=== PATIENT | female | born 1955 | race Caucasian/White ===

== ENCOUNTER → 2017-04-21 | Outpatient (CLI) | payer BC ==
[~2017-04-21] MED LIST: ASPEC81 PO; LRT5 PO
--- NOTE | 2017-04-21 15:38 | MAMMOGRAPHY REPORT ---
BILATERAL DIGITAL SCREENING MAMMOGRAM TOMOSYNTHESIS WITH CAD: 04/21/2017 TECHNIQUE: Breast tomosynthesis in addition to standard 2D mammography was performed. Current study was also evaluated with a Computer Aided Detection (CAD) system. COMPARISON: Comparison is made to exams dated: 04/20/2016 mammogram, 04/17/2015 mammogram, 04/16/2014 m ammogram, 11/12/2013 mammogram, 03/01/2013 mammogram, and 03/01/2013 ultrasound - [facility] enter. BREAST COMPOSITION: There are scattered areas of fibroglandular density in both breasts. FINDINGS: No suspicious masses, calcifications, or areas of architectural distortion are noted in ei ther breast. There has been no significant interval change compared to prior exams. Benign-appearing right breast calcifications are not significantly changed. Circumscribed benign-appearing mass in t he left lower inner quadrant is stable compared to multiple prior exams. IMPRESSION: ACR BI-RADS CATEGORY 2: BENIGN There is no mammographic evidence of malignancy. A 1 year screening mammogram is recommended. The pa tient will receive written notification of the results. Approximately 10% of breast cancers are not detected with mammography. A negative mammographic report should not delay biopsy if a clinically suggestive mass is present. Siri Neil M.D. ah/:04/21/2017 15:00:35 Catalytic Converter Operator: Idalia RICHARDS(Alden)(M), [facility] letter sent: Normal 1/2 BI-RADS Code: ACR BI-RADS Category 2: Benign
== END | disposition home or self-care (01) ==
LOC: C.MAMM 11:39
PROVIDERS: ATTEND Obstetrics & Gynecology
DX: Z12.31 Encounter for screening mammogram for malignant neoplasm of breast (principal)

== ENCOUNTER → 2017-08-03 | Outpatient (CLI) | payer BC | END | disposition home or self-care (01) | LOC: C.PAPS 09:00 | PROVIDERS: ATTEND Obstetrics & Gynecology | DX: Z01.419 Encounter for gynecological examination (general) (routine) without abnormal findings (principal) ==

== ENCOUNTER 2019-05-22 08:15 | Inpatient (IN) ==
--- NOTE | 2019-05-02 10:01 | PAT Medication Instructions ---
Medication Instructions Date of Service May 02, 2019 Home Medications venlafaxine 75 mg capsule,extended release 24 hr 75 mg PO HS Juice Plus 1 cap PO UD lorazepam 0.5 mg PO TID PRN STOP taking 2 weeks before surgery (or as soon as possible if surgery is within 2 weeks) Juice Plus 1 cap PO UD Take morning of surgery With a small sip of water, OTHERWISE NOTHING TO EAT OR DRINK AFTER MIDNIGHT: lorazepam 0.5 mg PO TID PRN (if needed) Take evening before surgery venlafaxine 75 mg capsule,extended release 24 hr 75 mg PO HS lorazepam 0.5 mg PO TID PRN (if needed) Other Notes If you have any questions please call us at [phone] or [phone] or [phone] or [phone]
--- NOTE | 2019-05-03 13:22 | Anesthesiology Consultation ---
Date of Service May 03, 2019 Assessment & Plan (1) Encounter for pre-operative examination: Chart Review Chart Review: Acceptable Risk for Surgery and Patient seen in Pre Admission Testing Teaching & Discussion Instructed NPO after midnight before surgery, except medications with 15 cc of water. Medication instructions provided according to the PAT guidelines. History Surgery Operation Date: 05/22/19 12:50 Proposed Procedures p Left Total Knee Arthroplasty - Rohan Alston MD Height/Weight Height: 5 ft 3 in Weight: 98.6 kg Allergies Allergy/AdvReac Type Severity Reaction Status Date / Time No Known Allergies Allergy Unknown NONE KNOWN Verified 05/01/19 11:03 Medications Home Medications Medication Instructions Recorded Confirmed Last Taken venlafaxine 75 mg capsule,extended 75 mg PO HS 12/27/18 05/03/19 01/24/19 release 24 hr Juice Plus 1 cap PO UD 05/01/19 05/03/19 Unknown lorazepam 0.5 mg PO TID PRN 05/01/19 05/03/19 Unknown aspirin 81 mg tablet,delayed 81 mg PO DAILY 05/03/19 05/03/19 Unknown release Past Medical History Medical History Anxiety Degenerative arthritis of knee, bilateral Osteoarthritis Exercise / Class Metabolic Activity III < 4 Walking/Shop/Light housework (Denies CP or SOB with 1 FOS but limited by knee pain) Past Family History Family History Mother Myocardial infarction Father Myocardial infarction Hypertension Aunt Breast cancer Sister Stroke Son Multiple sclerosis Past Surgical History Surgical History H/O breast biopsy H/O laparoscopy H/O shoulder surgery left (+hardware) H/O tooth extraction History of colonoscopy Past Anesthesia History No Hx of Anesthesia Complications and No Family Hx of Anesthesia Complications History of PONV No Hx of PONV and Hx of Motion Sickness Social History Smoking Status: Never smoker Do You Dip or Chew Tobacco: No Hx Alcohol Use: Yes Alcohol type: beer alcohol intake frequency: holidays/special occasions only Hx Substance Use: No substance use type: does not use Review of Systems Pt denies any recent chest pain, shortness of breath, palpitations, cough, fever or URI. Physical Exam Vital Signs BP: 133/80 P: 69bpm SPO2: 96% RA T: 98.2 F R: 14 Constitutional + obese ENMT Mouth: + dental restorations (few crowns); no chipped teeth and no loose teeth Thyromental Distance: > or= 3.5 Finger Breadths (.5) Mallampati Class: I Neck normal visual inspection and + limited neck extension Respiratory normal respiratory effort Auscultation: lungs clear to auscultation bilaterally Cardiovascular Rate/Rhythm: regular rate and regular rhythm Heart Sounds: no murmur Extremities: no edema Testing Laboratory Results 05/03/19 14:10 05/03/19 14:10 PT 9.7 Seconds (9.0-12.0) 05/03/19 14:10 INR 0.9 (0.9-1.1) 05/03/19 14:10 APTT 25.8 Seconds (21.0-31.0) 05/03/19 14:10 Blood Type O Positive 05/03/19 14:10 Antibody Screen NEGATIVE 05/03/19 14:10 Electrocardiogram Date: 02/01/19 Findings: + NSR @ (74bpm) Chest X-Ray Date: 02/01/19 Findings: + NAD
[2019-05-03 15:07] LABS: Basophils # (auto) 0.03 K/uL (0-0.2); Basophils % (auto) 0.5 %; Eosinophils # (auto) 0.15 K/uL (0-0.5); Eosinophils % (auto) 2.3 %; Hematocrit (blood only) 44.8 % (37-47); Hemoglobin 15.2 g/dL (12.0-16.0); Immature Granulocytes # (auto) 0.01 K/uL (0.00-0.02); Immature Granulocytes % (auto) 0.2 %; Lymphocytes # (auto) 1.77 K/uL (1.2-3.4); Lymphocytes % (auto) 26.8 %; Mean Corpuscular Hemoglobin 29.7 pg (25-34); Mean Corpuscular Hgb Conc 33.9 g/dL (32-36); Mean Corpuscular Volume 87.7 fL (80-100); Mean Platelet Volume 10.7 fL (7.4-10.4); Monocytes # (auto) 0.49 K/uL (0.11-0.59); Monocytes % (auto) 7.4 %; Neutrophils # (auto) 4.16 K/uL (1.4-6.5); Neutrophils % (auto) 62.8 %; Platelet Count 269 K/uL (130-400); RDW Coefficient of Variation 14.4 % (11.5-14.5); RDW Standard Deviation 45.7 fL (36.4-46.3); Red Blood Count 5.11 M/uL (4.2-5.4); White Blood Count 6.61 K/uL (4.8-10.8)
[2019-05-03 15:27] LABS: INR 0.9 (0.9-1.1); Partial Thromboplastin Time 25.8 Seconds (21.0-31.0); Prothrombin Time 9.7 Seconds (9.0-12.0)
[2019-05-03 15:52] LABS: BUN Creatinine Ratio 22.1 (10-20); Calcium 9.5 mg/dl (8.5-10.1); Creatinine Clr Calc Pharmacy 88.3 ml/min; Est GFR (African American) 102.6; Est GFR (Non-African American) 88.5; Potassium 3.7 mmol/L (3.5-5.1)
[~2019-05-22 08:15] MED LIST changes: +ACETAMINOPHEN 500 MG TAB PO SCH; -ASPEC81 PO; +BUPIVACAINE 0.5 % 5 MG/1 ML PF 10ML VIAL ONE; +BUPIVACAINE LIPOSOME/PF 266 MG, BUPIVACAINE/EPINEPHRINE 50 ML, SODIUM CHLORIDE 0.9% 30 ... INFIL SCH; +CEFAZOLIN 2000MG 2,000 MG/15 ML SYR IV SCH; +FAMOTIDINE 20 MG TAB PO SCH; +GABAPENTIN 600 MG DOSE PO SCH; +LR 500ML BOLUS, THEN 15ML/HR IV SCH; +LR 60ML/HR IV SCH; -LRT5 PO; +METOCLOPRAMIDE HCL 10 MG TABLET PO SCH; +ROPIVACAINE 0.5% 5 MG/ML 30 ML VIAL ONE; +SCOPOLAMINE 1.5 MG TDSY TD SCH; +SODIUM CHLORIDE 0.9% 1,000 ML IV SCH; +TRANEXAMIC ACID 1,000 MG **IV Intra-op IV SCH
--- NOTE | 2019-05-22 08:50 | History & Physical Bridge Note ---
Date of Service May 22, 2019 History & Physical Bridge Note I have examined the patient, reviewed the History & Physical and in the interval since the performance of the History & Physical I have noted the following changes of clinical significance: no changes noted
[2019-05-22] MEDS ORDERED: PROPOFOL IV EMULSION 10 MG/ML 20 ML VIAL IV ONE (09:53)
[2019-05-22] MEDS ORDERED: MIDAZOLAM HCL 1 MG/ML 2ML VIAL ONE (09:54)
[2019-05-22] MEDS ORDERED: ONDANSETRON INJ 2 MG/ML 2 ML VIAL IV PRN (10:09)
[2019-05-22] MEDS ORDERED: ePHEDrine sulfate 50 MG/ML AMP IV PRN (10:09)
[2019-05-22] MEDS ORDERED: ATROPINE SULFATE 0.1 MG/ML 10ML SYR IV PRN (10:09)
[2019-05-22] MEDS ORDERED: PHENYLEPHRINE 100MCG/ML 5ML SYR IV PRN (10:09)
[2019-05-22] MEDS ORDERED: HYDROmorphone INJ 1 MG/ML SYRINGE IV PRN (10:09)
[2019-05-22] MEDS ORDERED: KETOROLAC 30 MG/ML VIAL IV PRN (10:09)
[2019-05-22] MEDS ORDERED: PROMETHAZINE HCL 12.5 MG in SODIUM CHLORIDE 0.9% 50 ML IV PRN (10:09)
[2019-05-22] MEDS ORDERED: SODIUM CHLORIDE 0.9% PF 50 ML VIAL ONE (10:23)
[2019-05-22] MEDS ORDERED: BUPIVACAINE/EPINEPHRINE 0.25% 1:200,000 30 ML VIAL ONE (10:23)
[2019-05-22] MEDS ORDERED: BACITRACIN INJ 50,000 UNIT VIAL ONE (10:24)
[2019-05-22] MEDS ORDERED: BUPIVACAINE LIPOSOME 1.3% 266 MG/20 ML VIAL ONE (10:24)
[2019-05-22] MEDS ORDERED: PHENYLEPHRINE HCL 10 MG/ML VIAL ONE (11:04)
[2019-05-22] MEDS ORDERED: TRANEXAMIC ACID / 0.7% NACL 1000MG/100ML BAG IV ONE (11:16)
[2019-05-22] MEDS ORDERED: ePHEDrine sulfate 50 MG/ML AMP ONE (12:02)
--- NOTE | 2019-05-22 12:22 | Post Operative Brief Note ---
PG Immediate Post Op with CF Date of Surgery May 22, 2019 Pre & Post Diagnosis Operation Date: 05/22/19 10:40 Pre-Op Diagnosis: Left Knee Advanced Degenerative Joint Disease Post-Op Diagnosis: Left Knee Advanced Degenerative Joint Disease I identified the patient and participated in the time-out.: Yes Procedure Operation Date: 05/22/19 10:40 Actual Procedures p Left Total Knee Arthroplasty(Left) - Rohan Alston MD Surgeon Rohan Alston MD Dairy Farmer Christiano, PAC Estimated Blood Loss 50 Findings Consistent with Post-Op Diagnosis Fluids 1500 cc Specimens Specimen Description: Permanent: A. Left knee bone and tissue Drains Sher Catheter (A 16 [place] sher catheter was inserted by Anaya Rosas RN, without difficulty, clear yellow urine obtained, output to be monitored by Anesthesia.) Anesthesia Type Spinal MAC Complications none Disposition Accompanied Patient To Recovery: No Disposition: Recovery Room
--- NOTE | 2019-05-22 12:42 | XRay Report ---
XR knee LT 1 or 2V routine CLINICAL HISTORY: Postoperative evaluation. COMPARISON: Knee radiographs February 01, 2019. FINDINGS: Alignment of the total left knee arthroplasty is anatomic. There is no fracture or unexpec topher radiopaque foreign body. There are skin paty. IMPRESSION: Expected findings following total left knee arthroplasty. Electronically signed by: Tulio Belcher M.D. 05/22/2019 12:41 PM
[2019-05-22] MEDS ORDERED: HYDROmorphone INJ 0.5 MG/0.5 ML SYR IV PRN (13:42)
[2019-05-22] MEDS ORDERED: ALUMINUM/MAGNESIUM SUSP 30 ML UDC PO PRN (13:42)
[2019-05-22] MEDS ORDERED: [UNRECOGNIZED DRUG - OTHER] PO SCH (13:42)
[2019-05-22] MEDS ORDERED: MAGNESIUM HYDROXIDE SUSP 30 ML UDC PO PRN (13:42)
[2019-05-22] MEDS ORDERED: bisacodyL 10 MG SUPP PR PRN (13:42)
[2019-05-22] MEDS ORDERED: METOCLOPRAMIDE HCL INJ 5 MG/ML 2 ML VIAL IV PRN (13:42)
[2019-05-22] MEDS ORDERED: LORazepam 0.5 MG TAB PO PRN (13:42)
[2019-05-22] MEDS ORDERED: NALOXONE HCL 0.4 MG/1 ML VIAL/CARP IV PRN (13:42)
--- NOTE | 2019-05-22 13:50 | Anesthesiology Progress Note ---
Date of Service May 22, 2019 Anesthesia Post Procedure Vital Signs Vital Signs: Temp Pulse Pulse Resp BP Pulse Ox 05/22/19 13:05 37.1 C 78 18 110/57 L 96 05/22/19 12:55 71 14 108/57 L 96 05/22/19 12:45 72 13 116/61 93 05/22/19 12:35 74 18 110/52 L 99 05/22/19 12:27 37.1 C 78 16 112/58 L 98 05/22/19 10:37 84/54 L 05/22/19 10:35 84/45 L 05/22/19 08:48 37.1 C 86 20 140/85 94 Pain Intensity Left Knee: Pain Intensity: 5 Transfer of Care Handoff Completed per policy Notes Mental Status: alert / awake / arousable Patient Amnestic to Procedure: Yes Nausea / Vomiting: adequately controlled Pain: adequately controlled Airway Patency, RR, SpO2: stable & adequate BP & HR: stable & adequate Hydration State: stable & adequate Anesthetic Complications: no major complications apparent
[2019-05-22] MEDS: ACETAMINOPHEN 500 MG TAB PO SCH ×2 (14:12→21:31)
[2019-05-22] MEDS: SODIUM CHLORIDE 0.9% 1000ML 1,000 ML IV SCH ×2 (14:12→23:41)
[2019-05-22] MEDS: KETOROLAC 30 MG/ML VIAL IV SCH ×2 (14:13→19:37)
[2019-05-22] MEDS: CHECK SCOPOLAMINE PATCH PLACEMENT SCH ×2 (15:17→23:42)
--- NOTE | 2019-05-22 17:05 | Operative Report ---
Post Operative Report Pre & Post Diagnosis Operation Date: 05/22/19 10:40 Pre-Op Diagnosis: Left Knee Advanced Degenerative Joint Disease Post-Op Diagnosis: Left Knee Advanced Degenerative Joint Disease I identified the patient and participated in the time-out.: Yes Procedure Operation Date: 05/22/19 10:40 Actual Procedures p Left Total Knee Arthroplasty(Left) - Rohan Alston MD Surgeon Rohan Alston MD Clinical Asst Christiano, PAC Estimated Blood Loss 50 Findings Consistent with Post-Op Diagnosis Operative findings revealed advanced left knee DJD with extensive grade 4 changes of the medial and patellofemoral compartments with osteophytes of the medial femoral condyle, medial tibial plateau in the posterior aspect of the femur as well as along the patella. She had a moderate-sized joint effusion and a fixed varus deformity to her knee. About a 10 degree flexion contracture. Fluids 1500 cc Specimens Left knee sent for pathology. Drains None. Anesthesia Type Spinal MAC Complications none Disposition Accompanied Patient To Recovery: No Disposition: Recovery Room Indications Patient is a 63-year-old female with a long history of bilateral knee pain discomfort is gradually is gotten worse over the past several years. She been through extensive conservative treatment the past which became less successful over time. X-rays show advanced bilateral knee DJD per the left side was by the more than the right and she has elected to proceed with total knee arthroplasty. Description of Procedure Operative implants consisted of: 1. Biomet Vanguard size 67.5 left posterior bifemoral component. 2. Biomet Vanguard size 67 tibial tray. 3. 10 mm post device polyethylene insert. 4. 31 x 8 all poly-patella. Patient was taken to the operating room identified and placed in the operating table supine position with all contact areas were properly padded. IV antibiotics were provided by anesthesia team. A spinal anesthetic and abductor canal block had provided holding area. Fuentes catheter was placed in sterile fa shion the left eye turn was then placed in the left lower extremities and prepped and draped in usual sterile fashion. The left leg was elevated exsanguinated use of an Esmarch interspace at 300 mmHg . An anterior posterior left knee was then performed to a longitudinal incision centered over the patella. Sharp dissection was cut through subcutaneous cyst download the extensor mechanism. Some subperiosteal dissection was carried out medially. The fat pad was resected from beneath patella tendon. Lateral patellofemoral ligament was released. Patella was everted and the knee was flexed. The osteophytes were taken off the distal femur. The ACL PCL were then released from the distal femur the tibia subluxated anteriorly. The external tibial alignment jig was then placed in the interface the tibia and adjusted 14 mm medially. Proximal tibial cut was made to remove about 2 to 3 mm of bone from the most efficient aspect the medial tibial plateau. Tibia was then sized to a size 67. Attention drawn the femur. The distal femur was entered with a sharp drill. Intramedullary canal was suction. A left 5 degree valgus cutting guide was placed. Distal femoral cutting block was pinned in place. Distal femoral cut was made to take an additional 3 mm of bone off the distal femur. Femur was then sized to a size 67.5P we did downsize this due to the narrow medial and lateral dimensions of her femur. AP cutting block was pinned parallel to the epicondylar axis which was 6 degrees of external rotation. The anterior cut, anterior chamfer, posterior cut, posterior chamfer cuts made. Box cutting guide was placed and adjusted slightly laterally. The box cut was made to the knee was flexed. The remnants of the medial lateral menisci were excised. The osteophytes were taken off the posterior aspect of the femur. A trial femoral component was placed but the tibial tray was pinned in maximum external rotation and the drill and stem punch were used to create defect in the proximal tib-fib tibial tray. Knee was then trialed the 10 mm insert fit most appropriately. Attention drawn the patella. Patella was cleaned of soft tissues. Patella thickness measured 18 mm in thickness was cut down to 12. Was sized to a size 31 patella. The locals were drilled for 31 patella. The lateral osteophyte was removed. Patella button was placed. Knee was taken through range of motion with patella tracked nicely with no thumbs test. Attention turned toward placing the permanent components. All trial components were removed. Bone plug was placed in the disc femur limit blood loss put a double batch [place] G cement was mixed. Biomet Cuponzoteguard size 67.5 left posterior bifemoral component, size 67 tibial tray, 10 mm posterior bite polyethylene insert, and 31 x 8 all poly-patella then cement in place. Knees brought out in full extension until cement hardened. Final cement check was then performed. Pericapsular tissues were injected with total of 100 cc of combination of 20 cc of Exparel, 30 cc normal saline, 50 cc of quarter percent Marcaine with epinephrine. Patient did receive 1 g of tranexamic acid. The tourniquet was then let down for final tourniquet time 55 minutes. Hemostasis should use electrocautery. The extensor mechanism closed with combination 1 PDS suture #1 Vicryl suture in a [id number] fashion for extensor mechanism checked found to be intact the subtenons tissue then closed with 2 Dexon suture in a buried interrupted fashion skin was closed skin paty. Leg was then cleaned dried and sterile dressing composed of Xeroform, 4 x 4's, sterile cast padding, Jean Paul bandage were applied. Patient then transferred to the recovery room in stable condition. Patient tolerated procedure well and no complications. I attest to the content of the Intraoperative Record and any orders documented therein. Any exceptions are noted below.
[2019-05-22] MEDS: CEFAZOLIN 2000MG 2,000 MG/15 ML SYR IV SCH (17:57)
[2019-05-22] MEDS: FERROUS GLUCONATE 324 MG TAB PO SCH (17:57)
[2019-05-22] MEDS: ASCORBIC ACID 500 MG TAB PO SCH (17:57)
[2019-05-22] MEDS ORDERED: TRANEXAMIC ACID / 0.7% NACL 1,000 MG/100 ML BAG IV SCH (18:30)
[2019-05-22] MEDS: TAPENTADOL HCL ER 50 MG TABCR PO SCH (20:32)
[2019-05-22] MEDS: SENNA 8.6 MG TAB PO SCH (21:31)
[2019-05-22] MEDS: ASPIRIN 81 MG ECTAB PO SCH (21:31)
[2019-05-22] MEDS: VENLAFAXINE HCL XR 75 MG CAPXR PO SCH (21:31)
[2019-05-22] MEDS: DOCUSATE SODIUM 100 MG CAP PO SCH (21:31)
[2019-05-23] MEDS: CEFAZOLIN 2000MG 2,000 MG/15 ML SYR IV SCH (01:25)
[2019-05-23] MEDS: OXYCODONE HCL IR 5 MG TAB (IMMEDIATE RELEASE) PO PRN ×3 (01:29→20:26)
[2019-05-23] MEDS: KETOROLAC 30 MG/ML VIAL IV SCH ×4 (01:29→20:27)
[2019-05-23] MEDS: ONDANSETRON INJ 2 MG/ML 2 ML VIAL IV PRN ×3 (01:33→12:50)
[2019-05-23] MEDS: ACETAMINOPHEN 500 MG TAB PO SCH ×3 (05:41→21:17)
[2019-05-23 06:24] LABS: Hematocrit (blood only) 38.8 % (37-47); Hemoglobin 12.6 g/dL (12.0-16.0); Mean Corpuscular Hemoglobin 29.1 pg (25-34); Mean Corpuscular Hgb Conc 32.5 g/dL (32-36); Mean Corpuscular Volume 89.6 fL (80-100); Mean Platelet Volume 10.3 fL (7.4-10.4); Platelet Count 192 K/uL (130-400); RDW Coefficient of Variation 14.7 % (11.5-14.5); RDW Standard Deviation 48.2 fL (36.4-46.3); Red Blood Count 4.33 M/uL (4.2-5.4); White Blood Count 6.26 K/uL (4.8-10.8)
[2019-05-23 06:53] LABS: BUN Creatinine Ratio 12.9 (10-20); Calcium 8.3 mg/dl (8.5-10.1); Creatinine Clr Calc Pharmacy 85.7 ml/min; Est GFR (African American) 99.2; Est GFR (Non-African American) 85.6
--- NOTE | 2019-05-23 07:19 | Orthopedic Progress Note ---
Date of Service May 23, 2019 Assessment & Plan (1) S/P total knee replacement: Continue PT/OT. She is weightbearing as tolerated. Continue discharge planning. Teds S, SCDs, aspirin for DVT prophylaxis. Her pain is well controlled at this point. She is seen and examined by Dr. Alston today as well. Subjective 63-year-old female postop day 1 from left total knee replacement. She is doing well. She is ambulating to the restroom at this point. Denies any pain. No new complaints. Physical Exam Physical Exam: She is alert and oriented. Ambulating at this point. She is able to dorsiflex plantarflex appropriately. She is neurovascular intact. Vital signs are stable. Results & Data Vital Signs (Past 12 Hours) Vital Signs Temp Pulse Resp BP Pulse Ox 05/23/19 04:15 37.2 C 73 16 134/68 94 05/22/19 23:05 36.8 C 70 16 123/72 97 05/22/19 19:52 36.5 C 62 18 110/69 94 PG Care Time/CCT Total # of Minutes Spent Total Time Spent with Patient: Total time spent is greater than 50% in coordination of care (as documented) at patient's floor/unit and/or counseling patient:
[2019-05-23] MEDS: MULTIVITAMIN TAB PO SCH (08:22)
[2019-05-23] MEDS: ASCORBIC ACID 500 MG TAB PO SCH ×2 (08:22→18:22)
[2019-05-23] MEDS: FERROUS GLUCONATE 324 MG TAB PO SCH ×2 (08:22→18:22)
[2019-05-23] MEDS: DOCUSATE SODIUM 100 MG CAP PO SCH ×2 (08:23→20:30)
[2019-05-23] MEDS: TAPENTADOL HCL ER 50 MG TABCR PO SCH ×2 (08:23→21:28)
[2019-05-23] MEDS: ASPIRIN 81 MG ECTAB PO SCH ×2 (08:23→20:29)
[2019-05-23] MEDS: VENLAFAXINE HCL XR 75 MG CAPXR PO SCH (20:30)
[2019-05-23] MEDS: SENNA 8.6 MG TAB PO SCH (20:31)
[2019-05-24] MEDS: OXYCODONE HCL IR 5 MG TAB (IMMEDIATE RELEASE) PO PRN (00:53)
[2019-05-24] MEDS: KETOROLAC 30 MG/ML VIAL IV SCH ×2 (00:57→07:36)
[2019-05-24] MEDS: ACETAMINOPHEN 500 MG TAB PO SCH (05:43)
[2019-05-24] MEDS: FERROUS GLUCONATE 324 MG TAB PO SCH (07:36)
[2019-05-24] MEDS: ASPIRIN 81 MG ECTAB PO SCH (07:36)
[2019-05-24] MEDS: TAPENTADOL HCL ER 50 MG TABCR PO SCH (07:36)
[2019-05-24] MEDS: ASCORBIC ACID 500 MG TAB PO SCH (07:36)
[2019-05-24] MEDS: DOCUSATE SODIUM 100 MG CAP PO SCH (07:36)
[2019-05-24] MEDS: MULTIVITAMIN TAB PO SCH (07:36)
--- NOTE | 2019-05-24 08:19 | Progress Note ---
DATE: 05/24/2019 SUBJECTIVE: A 63-year-old female postop day 2 from a left knee replacement. She is doing pretty well. Pain is very well controlled. Therapy has gone well. No chest pain or shortness of breath. Not feeling dizzy or lightheaded. OBJECTIVE: VITAL SIGNS: Temperature 37.1. Vital signs stable. GENERAL: Shows a pleasant, middle-aged female. She is sitting up in her bed, eating breakfast and looks comfortable. EXTREMITIES: Examination of the left leg reveals the dressing to be clean, dry and intact. She can dorsiflex and plantarflex her foot appropriately. Calf is soft and supple. She is neurologically intact. ASSESSMENT: A 63-year-old female postop day 2 from left knee replacement, doing well. Her pain is controlled. She is neurologically intact. PLAN: 1. DVT prophylaxis including thigh-high TEDs, SCDs, and aspirin twice a day. 2. PT/OT. Weight bear as tolerated. Left total knee protocol. 3. Pain control, doing well with current pain regimen. 4. Disposition: Plan to discharge to home with some home health later today.
--- NOTE | 2019-05-27 22:57 | Discharge Summary ---
ADMITTING PHYSICIAN AND SURGEON: Dr. Rohan Alston. ADMITTING DIAGNOSIS: Left knee degenerative joint disease. SURGERY PERFORMED: Left total knee arthroplasty. SECONDARY DIAGNOSES: Gastroesophageal reflux disease, arthritis, obesity. CONSULTS: None obtained. HISTORY AND PHYSICAL EXAMINATION: Well documented in the patient's chart. HOSPITAL COURSE: The patient was admitted on 05/22/2019, underwent a total knee arthroplasty, tolerated the procedure well. There were no complications. She was transferred to the PACU postoperatively and later to the orthopedic floor for further care. She was given Ancef for antibiotic prophylaxis, BRANDY stockings, SCDs and aspirin for DVT prophylaxis. Hemoglobin, hematocrit and vital signs were monitored during her hospital stay and remained stable. She did not require any blood transfusions. There were no complications. By postoperative day 2, she was tolerating a regular diet, pain was controlled with oral pain medicine. She was participating in physical therapy. By postop day 2, she was discharged home, set up with home health services. She was given printed discharge instructions as well as new prescriptions for extra strength Tylenol, aspirin and oxycodone. Continue her home medications with the exception of her home dosing of Tylenol and aspirin which was changed. Continue physical therapy, weightbearing as tolerated, BRANDY stockings. Follow up approximately 2 weeks postop or sooner if there are any problems or concerns.
== END 2019-05-24 11:00 | disposition home health service (06) | DRG 470 ==
LOC: ASU 08:15 → 3E 12:27

== ENCOUNTER 2019-11-20 06:45 | Inpatient (IN) ==
--- NOTE | 2019-10-30 08:42 | PAT Medication Instructions ---
Medication Instructions Date of Service October 30, 2019 Home Medications venlafaxine 75 mg capsule,extended release 24 hr 75 mg PO HS Juice Plus 1 cap PO UD lorazepam 0.5 mg PO TID PRN amoxicillin 2,000 mg PO UD Continue as directed amoxicillin 2,000 mg PO UD STOP taking 2 weeks before surgery Juice Plus 1 cap PO UD Take morning of surgery With a small sip of water, OTHERWISE NOTHING TO EAT OR DRINK AFTER MIDNIGHT: lorazepam 0.5 mg PO TID PRN (if needed) Take evening before surgery venlafaxine 75 mg capsule,extended release 24 hr 75 mg PO HS lorazepam 0.5 mg PO TID PRN (if needed) Other Notes If you have any questions please call us at [phone] or [phone] or [phone] or [phone]
--- NOTE | 2019-10-30 12:35 | Anesthesiology Consultation ---
Date of Service October 30, 2019 Assessment & Plan (1) Encounter for pre-operative examination: Chart Review Chart Review: Acceptable Risk for Surgery and Patient seen in Pre Admission Testing Per PAT visit 10/30/19, patient denies any recent travel out of [facility]. No known PUI or Covid positive contacts. No current Covid related symtpoms. No history of Covid testing. Did discourage any travel or new contact to others prior to surgery. Left TKA 05/22/19= Done under SAB- at L 3-4. No issues noted per anesthesia record Teaching & Discussion Pre-Anesthesia Teaching/Discussion Notes: Instructed NPO after midnight before surgery,except medications with 15 cc of water. Medication instructions provided according to the PAT guidelines. History Surgery Operation Date: 11/20/19 07:15 Proposed Procedures p Right Total Knee Arthroplasty - Rohan Alston MD Height/Weight Height: 5 ft 3 in Weight: 100.3 kg Allergies Allergy/AdvReac Type Severity Reaction Status Date / Time No Known Allergies Allergy Unknown NONE KNOWN Verified 10/29/19 15:22 Medications Home Medications Medication Instructions Recorded Confirmed Last Taken venlafaxine 75 mg capsule,extended 75 mg PO HS 12/27/18 10/29/19 05/21/19 22:00 release 24 hr Juice Plus 1 cap PO UD 05/01/19 10/29/19 05/19/19 lorazepam 0.5 mg PO TID PRN 05/01/19 10/29/19 05/22/19 07:00 amoxicillin 2,000 mg PO UD 10/29/19 10/29/19 Unknown Past Medical History Medical History Anxiety Right knee DJD Exercise / Class Metabolic Activity II 4-5 Yardwork/Stairs/Walk up hill (one flight of stairs- no chest pain or SOB ) Past Family History Family History Mother Myocardial infarction Father Myocardial infarction Hypertension Aunt Breast cancer Sister Stroke Son Multiple sclerosis Denies family history of Ovarian cancer Colorectal cancer Past Surgical History Surgical History H/O breast biopsy H/O laparoscopy H/O shoulder surgery left (+hardware) H/O tooth extraction History of colonoscopy History of total knee replacement LEFT Past Anesthesia History No Hx of Anesthesia Complications and No Family Hx of Anesthesia Complications History of PONV History of PONV and Hx of Motion Sickness Social History Smoking Status: Never smoker Do You Dip or Chew Tobacco: No Hx Alcohol Use: Yes Alcohol type: wine alcohol intake frequency: a few times a month Hx Substance Use: No substance use type: does not use Review of Systems Occ reflux- diet related Occ snoring- no witnessed apnea Patient denies chest pain, shortness of breath, dyspnea on exertion, cough, wheezing, palpitations. No hx of seizures, stroke, [place]. No hx of blood clots or blood transfusions Physical Exam Vital Signs VITALS BP 126/73 P 77 TEMP 97.9 SP02 98% RESP 16 Constitutional + obese; no acute distress ENMT Mouth: no TMJ clicking Thyromental Distance: > or= 3.5 Finger Breadths (3.5) Mallampati Class: I Neck neck extension not limited Respiratory normal respiratory effort; no respiratory distress Auscultation: lungs clear to auscultation bilaterally; no wheezes Cardiovascular Rate/Rhythm: regular rate and regular rhythm Heart Sounds: no murmur Vessels: no carotid bruit Musculoskeletal Spine: no pain with cervical ROM Neurologic moves all extremities Psychiatric Orientation: alert Testing Laboratory Results 10/30/19 12:47 10/30/19 12:47 PT 10.2 Seconds (9.0-12.0) 10/30/19 12:47 INR 1.0 (0.9-1.1) 10/30/19 12:47 APTT 27.9 Seconds (21.0-31.0) 10/30/19 12:47 Blood Type O Positive 10/30/19 12:47 Antibody Screen NEGATIVE 10/30/19 12:47 Electrocardiogram Date: 02/01/19 Findings: + NSR @ (74bpm) Chest X-Ray Date: 02/01/19 Findings: + NAD
[2019-10-30 13:42] LABS: Basophils # (auto) 0.02 K/uL (0-0.2); Basophils % (auto) 0.4 %; Eosinophils # (auto) 0.14 K/uL (0-0.5); Eosinophils % (auto) 2.8 %; Hematocrit (blood only) 42.6 % (37-47); Hemoglobin 13.9 g/dL (12.0-16.0); Immature Granulocytes # (auto) 0.01 K/uL (0.00-0.02); Immature Granulocytes % (auto) 0.2 %; Lymphocytes # (auto) 1.39 K/uL (1.2-3.4); Lymphocytes % (auto) 27.7 %; Mean Corpuscular Hemoglobin 28.5 pg (25-34); Mean Corpuscular Hgb Conc 32.6 g/dL (32-36); Mean Corpuscular Volume 87.5 fL (80-100); Mean Platelet Volume 10.2 fL (7.4-10.4); Monocytes # (auto) 0.43 K/uL (0.11-0.59); Monocytes % (auto) 8.6 %; Neutrophils # (auto) 3.03 K/uL (1.4-6.5); Neutrophils % (auto) 60.3 %; Platelet Count 275 K/uL (130-400); RDW Coefficient of Variation 14.6 % (11.5-14.5); RDW Standard Deviation 46.5 fL (36.4-46.3); Red Blood Count 4.87 M/uL (4.2-5.4); White Blood Count 5.02 K/uL (4.8-10.8)
[2019-10-30 13:48] LABS: BUN Creatinine Ratio 29.2 (10-20); C Reactive Protein 1.96 mg/dl (0-0.29); Calcium 9.5 mg/dl (8.5-10.1); Creatinine Clr Calc Pharmacy 103.9 ml/min; Est GFR (African American) 110.3; Est GFR (Non-African American) 95.1
[2019-10-30 13:54] LABS: Partial Thromboplastin Time 27.9 Seconds (21.0-31.0); Prothrombin Time 10.2 Seconds (9.0-12.0)
[~2019-11-20 06:45] MED LIST changes: +GABAPENTIN 300 MG CAP PO SCH; -GABAPENTIN 600 MG DOSE PO SCH; -ROPIVACAINE 0.5% 5 MG/ML 30 ML VIAL ONE; -SCOPOLAMINE 1.5 MG TDSY TD SCH; -SODIUM CHLORIDE 0.9% 1,000 ML IV SCH
[2019-11-20] MEDS ORDERED: MIDAZOLAM HCL 1 MG/ML 2ML VIAL ONE ×2 (07:23→07:52)
[2019-11-20] MEDS ORDERED: PROPOFOL IV EMULSION 10 MG/ML 20 ML VIAL IV ONE (07:23)
[2019-11-20] MEDS ORDERED: fentaNYL citrate 100 MCG/2 ML VIAL ONE (07:23)
[2019-11-20] MEDS ORDERED: ONDANSETRON INJ 2 MG/ML 2 ML VIAL ONE (07:23)
[2019-11-20] MEDS ORDERED: LIDOCAINE HCL 2% 2 ML VIAL/AMP(20MG/ML) INFIL ONE (07:23)
[2019-11-20] MEDS ORDERED: BUPIVACAINE/EPINEPHRINE 0.25% 1:200,000 30 ML VIAL ONE (07:33)
[2019-11-20] MEDS ORDERED: BUPIVACAINE LIPOSOME 1.3% 266 MG/20 ML VIAL ONE (07:33)
[2019-11-20] MEDS ORDERED: BACITRACIN INJ 50,000 UNIT VIAL ONE (07:33)
[2019-11-20] MEDS ORDERED: SODIUM CHLORIDE 0.9% PF 50 ML VIAL ONE (07:33)
--- NOTE | 2019-11-20 08:44 | History & Physical Bridge Note ---
Date of Service November 20, 2019 History & Physical Bridge Note I have examined the patient, reviewed the History & Physical and in the interval since the performance of the History & Physical I have noted the following changes of clinical significance: no changes noted
[2019-11-20] MEDS ORDERED: ONDANSETRON INJ 2 MG/ML 2 ML VIAL IV PRN ×2 (09:24→11:42)
[2019-11-20] MEDS ORDERED: ePHEDrine sulfate 50 MG/ML AMP IV PRN (09:24)
[2019-11-20] MEDS ORDERED: ATROPINE SULFATE 0.1 MG/ML 10ML SYR IV PRN (09:24)
[2019-11-20] MEDS ORDERED: fentaNYL citrate 100 MCG/2 ML VIAL IV PRN (09:24)
[2019-11-20] MEDS ORDERED: PHENYLEPHRINE 100MCG/ML 5ML SYR ONE (09:51)
[2019-11-20] MEDS ORDERED: PROMETHAZINE HCL INJ 25 MG/ML 1 ML VIAL ONE (09:51)
[2019-11-20] MEDS ORDERED: DEXAMETHASONE SOD INJ 4 MG/ML VIAL ONE (09:51)
[2019-11-20] MEDS ORDERED: ePHEDrine sulfate 50 MG/ML SYR ONE (09:51)
--- NOTE | 2019-11-20 10:29 | Post Operative Brief Note ---
PG Immediate Post Op with CF Date of Surgery November 20, 2019 Pre & Post Diagnosis Operation Date: 11/20/19 08:30 Pre-Op Diagnosis: Right knee degenerative joint disease with knee pain Post-Op Diagnosis: Right knee degenerative joint disease with knee pain Operation Date: 11/20/19 11:00 <No data on this case meets the specified criteria> I identified the patient and participated in the time-out.: Yes Procedure Operation Date: 11/20/19 08:30 Actual Procedures p Right Total Knee Arthroplasty(Right) - Rohan Alston MD Operation Date: 11/20/19 11:00 <No data on this case meets the specified criteria> Surgeon Rohan Alston MD Accountant Supervisor POLO Alvarado Estimated Blood Loss 50 Findings Consistent with Post-Op Diagnosis Fluids 1400 cc Specimens Specimen Description: Permanent Specimen: A: Right knee bone and tissue Drains Sher Catheter (16fr sher catheter placed by Donna Alvarado PA-C, without difficulty, sher demonstrates clear yellow urine. Output measured and recorded by anesthesia.) Anesthesia Type Spinal MAC Complications none Disposition Accompanied Patient To Recovery: No Disposition: Recovery Room
--- NOTE | 2019-11-20 10:41 | Operative Report ---
Post Operative Report Pre & Post Diagnosis Operation Date: 11/20/19 08:30 Pre-Op Diagnosis: Right knee degenerative joint disease with knee pain Post-Op Diagnosis: Right knee degenerative joint disease with knee pain Operation Date: 11/20/19 11:00 <No data on this case meets the specified criteria> I identified the patient and participated in the time-out.: Yes Procedure Operation Date: 11/20/19 08:30 Actual Procedures p Right Total Knee Arthroplasty(Right) - Rohan Alston MD Operation Date: 11/20/19 11:00 <No data on this case meets the specified criteria> Surgeon Rohan Alston MD Business Process Manager [facility] Estimated Blood Loss 50 Findings Consistent with Post-Op Diagnosis Operative findings revealed advanced right knee tricompartment DJD most severe in the medial and patellofemoral compartments with extensive grade 4 changes. She had a varus deformity to her knee. Osteophytes in all 3 compartments. Moderate sized joint effusion. Fluids 1400 cc. Specimens Right knee sent for pathology. Drains None. Anesthesia Type Spinal MAC Complications none Disposition Accompanied Patient To Recovery: No Disposition: Recovery Room Indications Patient is a 64-year-old female is had a long history of bilateral knee pain discomfort. She underwent a left knee replacement about 6 months ago and is done quite well. As she continued limited and bothered by right knee pain discomfort. She failed all conservative care. X-rays ruled revealed advanced right knee DJD. She elected proceed with total knee arthroplasty. Description of Procedure Operative implants consist of: 1. Biomet Vanguard size 67.5 right posterior by femoral component. 2. Biomet size 67 tibial tray. 3. 10 mm posterior box polyethylene insert. 4. 31 x 8 all poly-patella. Patient was taken to the operating room identified and placed on the operating table supine position protectors were properly padded. IV antibiotics arrived by anesthesia team. A Fuentes catheter was placed in sterile fashion. Right thigh tract was then placed in the right lower extremity was then prepped and draped in the usual sterile fashion. The right leg was elevated exsanguinated with use of an Esmarch and turns placed at 300 mmHg. An anterior approach to the right knee was then performed to longitudinal incision centered over the patella. Sharp dissection was cut through subcutaneous this down to the extensor mechanism. A medial parapatellar arthrotomy incision was made. Some subperiosteal dissection was carried out medially. The fat pad was resected from each patella tendon. The lateral patellofemoral ligament was released. Patella was subluxate laterally and the knee was flexed. The osteophytes were taken off the distal femur. The ACL and PCL were then released and distal femur the tibia subluxate anteriorly. The external tibial alignment jig was then placed in the interface the tibia adjusted 14 mm medially. Proximal tibial cut was made to move about 2 mm of bone from most efficient aspect medial tibial plateau. Some osteophytes were taken off medial and posterior medially. The tibia sized to a size 67. Attention drawn the femur. The distal femur was entered with a sharp drop with intramedullary canal was suction. A right 5 degree valgus cutting guide was placed. Distal femoral cutting block was pinned in place. Distal femoral cut was made to take an additional 3 mm of bone off distal femur. Of note, the patient did have a flexion contracture preoperatively. The femur was then sized to a 67.5. We downsized this almost the entire size due to her narrow medial and lateral dimensions of the femur. The AP cutting block was pinned parallel to the epicondylar axis which was 3 degrees of external rotation. The anterior cut, anterior chamfer, posterior cut, posterior chamfer cuts were made. Box cutting guide was placed in the just slight lateral and the box cut was made. The knee was flexed. The remnants of the medial lateral menisci were excised. The osteophytes were taken off the posterior aspect of the femur. A trial femoral component was placed. The tibial tray was pinned in maximum external rotation and the drill and stem punch were used to create defect in the proximal tibia for the tibial tray. Knee was then trialed and the 10 mm insert fit most appropriately. Attention drawn to the patella. The patella was cleaned of all soft tissues. Patella thickness measured 18 mm in thickness was cut down to 12. Sized to a size 31 patella. The locals were drilled for the 31 patella. The lateral osteophyte was removed. Patella button was placed. Knee was taken through range of motion patella tracked nicely with no thumbs test. Attention turned to placing the permanent components. All trial components removed. Bone plug was placed into the distal femur limit blood loss. A double batch Palacos G cement was mixed. A BiomTwilio Vanguard size 67.5 right posterior by femoral component, size 67, tibial tray, and a 10 mm posterior stabilized polyethylene insert and a 31 x 8 all poly-patella were then cemented in place. Knee was brought out into full extension until cement hardened. Final cement check was then performed. The wound was irrigated with copious pulsatile lavage solution. I did inject locally with 100 cc of combination of 20 cc of Exparel, 30 cc of normal saline, 50 cc of quarter percent Marcaine with epinephrine. The tourniquet was then let down for tourniquet time 52 minutes. Hemostasis assured use electrocautery. The extensor mechanism then closed with combination 1 PDS suture #1 Vicryl suture in a [id number] fashion. The extensor mechanism checked found to be intact with subcutaneous tissue then closed with 2 Dexon suture in a buried interrupted fashion skin was closed skin paty. Leg was then cleaned dried a sterile dressing composed of Xeroform, 4 x 4's, sterile cast padding, Jean Paul bandage were applied. Patient then transferred to the recovery room in stable condition. Patient tolerated procedure well no complications. I attest to the content of the Intraoperative Record and any orders documented therein. Any exceptions are noted below.
--- NOTE | 2019-11-20 11:04 | XRay Report ---
RIGHT KNEE 2 VIEWS History: Right total knee arthroplasty. Degenerative arthritis. Postop. FINDINGS: The patient is status post a right total knee arthroplasty. The hardware is intact. No frac ture or dislocation. Skin paty are in place. IMPRESSION: Right total knee arthroplasty. No evidence for hardware complication. ACT 112: Negative or not required by law. Electronically signed by: Juan Hernandez M.D. 11/20/2019 11:02 AM
--- NOTE | 2019-11-20 11:10 | Anesthesiology Progress Note ---
Date of Service November 20, 2019 Anesthesia Post Procedure Vital Signs Vital Signs: Temp Pulse Pulse Resp BP Pulse Ox 11/20/19 11:05 70 18 122/59 L 95 11/20/19 10:55 55 L 18 133/59 L 100 11/20/19 10:45 66 18 129/57 L 100 11/20/19 10:38 98.1 F 68 18 105/71 100 11/20/19 07:31 99.1 F 76 20 96 Transfer of Care Handoff Completed per policy Notes Mental Status: alert / awake / arousable and participated in evaluation Patient Amnestic to Procedure: Yes Nausea / Vomiting: adequately controlled Pain: adequately controlled Airway Patency, RR, SpO2: stable & adequate BP & HR: stable & adequate Hydration State: stable & adequate Neuraxial Anesthesia: was administered and sensory block is resolving Anesthetic Complications: no major complications apparent and Pt Satisfied with anesthetic care
[2019-11-20] MEDS ORDERED: OXYCODONE HCL IR 5 MG TAB (IMMEDIATE RELEASE) PO PRN (11:42)
[2019-11-20] MEDS ORDERED: NALOXONE HCL 0.4 MG/1 ML VIAL/CARP IV PRN (11:42)
[2019-11-20] MEDS ORDERED: [UNRECOGNIZED DRUG - OTHER] PO SCH (11:42)
[2019-11-20] MEDS ORDERED: HYDROmorphone INJ 0.5 MG/0.5 ML SYR IV PRN (11:42)
[2019-11-20] MEDS ORDERED: SODIUM CHLORIDE 0.9% 1000ML 1,000 ML IV SCH (11:42)
[2019-11-20] MEDS ORDERED: LORazepam 0.5 MG TAB PO PRN (11:42)
[2019-11-20] MEDS ORDERED: MAGNESIUM HYDROXIDE SUSP 30 ML UDC PO PRN (11:42)
[2019-11-20] MEDS ORDERED: ALUMINUM/MAGNESIUM SUSP 30 ML UDC PO PRN (11:42)
[2019-11-20] MEDS ORDERED: bisacodyL 10 MG SUPP PR PRN (11:42)
[2019-11-20] MEDS ORDERED: METOCLOPRAMIDE HCL INJ 5 MG/ML 2 ML VIAL IV PRN (11:42)
[2019-11-20] MEDS: ACETAMINOPHEN 500 MG TAB PO SCH ×2 (13:18→20:52)
[2019-11-20] MEDS: KETOROLAC 30 MG/ML VIAL IV SCH ×3 (13:19→23:15)
--- NOTE | 2019-11-20 13:44 | Progress Notes ---
DATE: 11/20/2019 SUBJECTIVE: A 64-year-old white female postop from a right knee replacement. She is doing pretty well. Just starting to get some pain and discomfort in the right leg. No chest pain or shortness of breath. Not feeling dizzy or lightheaded. OBJECTIVE: VITAL SIGNS: Temperature 36.3. Vital signs stable. GENERAL: Shows a pleasant, middle-aged female. She is sitting up in bed, looks pretty comfortable. LUNGS: Clear to auscultation. HEART: Has a regular rate and rhythm. ABDOMEN: Soft, nontender, nondistended. EXTREMITIES: Grossly neurovascularly intact except as follows: Examination of the right leg reveals the leg to be well aligned. Dressing is clean, dry and intact. She can dorsiflex and plantarflex her foot appropriately. She is neurologically intact. ASSESSMENT: A 64-year-old white female postop day 1 from right knee replacement, doing pretty well. Pain is controlled. She is neurologically intact. PLAN: 1. DVT prophylaxis including thigh-high TEDS, SCDs, and aspirin twice a day. 2. PT/OT. Weight bear as tolerated. Right total knee protocol. 3. Pain control, doing pretty well with current pain regimen. She is requesting to avoid oxycodone as she had some hallucinations on that before. We will change her to tramadol and if need to change to something else will likely move to p.o. Dilaudid. 4. IV antibiotics x24 hours. 5. Disposition: Plan to discharge to home with some home health once adequately recovered and medically stable.
[2019-11-20] MEDS: TRAMADOL HCL 50 MG TABLET PO SCH ×2 (14:47→20:52)
[2019-11-20] MEDS ORDERED: TRANEXAMIC ACID / 0.7% NACL 1,000 MG/100 ML BAG IV SCH (16:32)
[2019-11-20] MEDS: ASCORBIC ACID 500 MG TAB PO SCH (17:03)
[2019-11-20] MEDS: FERROUS GLUCONATE 324 MG TAB PO SCH (17:03)
[2019-11-20] MEDS: CEFAZOLIN 2000MG 2,000 MG/15 ML SYR IV SCH (17:06)
[2019-11-20] MEDS: ASPIRIN 81 MG ECTAB PO SCH (20:51)
[2019-11-20] MEDS: TAPENTADOL HCL ER 50 MG TABCR PO SCH (20:51)
[2019-11-20] MEDS: SENNA 8.6 MG TAB PO SCH (20:52)
[2019-11-20] MEDS: VENLAFAXINE HCL XR 75 MG CAPXR PO SCH (20:52)
[2019-11-20] MEDS: DOCUSATE SODIUM 100 MG CAP PO SCH (20:52)
[2019-11-21] MEDS: CEFAZOLIN 2000MG 2,000 MG/15 ML SYR IV SCH (01:55)
[2019-11-21] MEDS: TRAMADOL HCL 50 MG TABLET PO SCH (01:55)
[2019-11-21] MEDS: KETOROLAC 30 MG/ML VIAL IV SCH (04:40)
[2019-11-21] MEDS: ACETAMINOPHEN 500 MG TAB PO SCH ×3 (05:16→22:34)
[2019-11-21 06:32] LABS: Hematocrit (blood only) 36.8 % (37-47); Mean Corpuscular Hemoglobin 28.4 pg (25-34); Mean Corpuscular Hgb Conc 32.6 g/dL (32-36); Mean Platelet Volume 10.9 fL (7.4-10.4); Platelet Count 214 K/uL (130-400); RDW Coefficient of Variation 14.8 % (11.5-14.5); Red Blood Count 4.23 M/uL (4.2-5.4); White Blood Count 11.98 K/uL (4.8-10.8)
[2019-11-21 07:03] LABS: Calcium 8.8 mg/dl (8.5-10.1); Creatinine Clr Calc Pharmacy 85.6 ml/min; Est GFR (African American) 100.2; Est GFR (Non-African American) 86.4; Potassium 3.9 mmol/L (3.5-5.1)
[2019-11-21] MEDS ORDERED: TRAMADOL HCL 50 MG TABLET PO PRN (07:04)
[2019-11-21] MEDS: ASCORBIC ACID 500 MG TAB PO SCH ×2 (07:47→16:24)
[2019-11-21] MEDS: DOCUSATE SODIUM 100 MG CAP PO SCH ×2 (07:47→20:37)
[2019-11-21] MEDS: ASPIRIN 81 MG ECTAB PO SCH ×2 (07:47→20:37)
[2019-11-21] MEDS: MULTIVITAMIN TAB PO SCH (07:47)
[2019-11-21] MEDS: TAPENTADOL HCL ER 50 MG TABCR PO SCH ×2 (07:47→20:37)
[2019-11-21] MEDS: FERROUS GLUCONATE 324 MG TAB PO SCH ×2 (07:47→17:39)
--- NOTE | 2019-11-21 07:49 | Progress Notes ---
DATE: 11/21/2019 SUBJECTIVE: A 64-year-old white female postop day 1 from right knee replacement, doing pretty well. Pain is controlled. Had a pretty good night. No chest pain or shortness of breath. Not feeling dizzy or lightheaded. OBJECTIVE: VITAL SIGNS: Temperature 36.9. Vital signs stable. GENERAL: Shows a pleasant, middle-aged female. She is sitting up at her bedside and looks comfortable this morning. EXTREMITIES: Examination of the right leg reveals the dressing to be in place. Just a trace bit of bloody drainage. She can do a good straight leg raise. She can dorsiflex and plantarflex her foot appropriately. LABORATORY DATA: Hemoglobin 12.0. Hematocrit 36.8. Electrolytes are stable. ASSESSMENT: A 64-year-old white female postoperative day 1 from right knee replacement, doing pretty well. Pain is controlled. She is neurologically intact. PLAN: 1. DVT prophylaxis including thigh-high TEDs, SCDs, and aspirin twice a day. 2. PT/OT. Weight bear as tolerated. Right total knee protocol. 3. Pain control, doing well with current pain regimen. 4. Disposition: Plan to discharge to home with some home health once medically stable and adequately rehabed.
--- NOTE | 2019-11-21 08:21 | Anesthesiology Progress Note ---
Date of Service November 21, 2019 Anesthesia Post Procedure Vital Signs Vital Signs: Temp Pulse Pulse Pulse Resp BP BP 11/21/19 06:59 36.9 C 60 18 126/57 L 11/21/19 02:55 36.8 C 62 16 100/51 L 11/20/19 23:20 36.7 C 72 16 108/70 11/20/19 19:33 37.2 C 93 H 18 103/71 11/20/19 14:33 36.9 C 82 17 119/64 11/20/19 13:21 85 14 120/77 11/20/19 12:04 36.3 C L 66 16 115/70 11/20/19 11:35 36.5 C 65 14 105/66 11/20/19 11:25 70 18 128/62 11/20/19 11:15 36.4 C L 54 L 18 127/60 11/20/19 11:05 70 18 122/59 L 11/20/19 10:55 55 L 18 133/59 L 11/20/19 10:45 66 18 129/57 L 11/20/19 10:38 36.7 C 68 18 105/71 Pulse Ox 11/21/19 06:59 92 11/21/19 02:55 94 11/20/19 23:20 96 11/20/19 19:33 95 11/20/19 14:33 95 11/20/19 13:21 94 11/20/19 12:04 98 11/20/19 11:35 94 11/20/19 11:25 95 11/20/19 11:15 95 11/20/19 11:05 95 11/20/19 10:55 100 11/20/19 10:45 100 11/20/19 10:38 100 Pain Intensity Right Knee: Pain Intensity: 3 Notes Mental Status: alert / awake / arousable and participated in evaluation Nausea / Vomiting: adequately controlled Pain: adequately controlled Airway Patency, RR, SpO2: stable & adequate BP & HR: stable & adequate Hydration State: stable & adequate Neuraxial Anesthesia: sensory block resolved Anesthetic Complications: Pt Satisfied with anesthetic care
[2019-11-21] MEDS ORDERED: MULTIVITAMIN TAB PO SCH (09:00)
[2019-11-21] MEDS ORDERED: SODIUM CHLORIDE 0.9% 1000ML 1,000 ML IV ONE (13:37)
--- NOTE | 2019-11-21 13:49 | XRay Report ---
XR chest 1V portable CLINICAL HISTORY: Postoperative shortness of breath COMPARISON STUDY: 02/01/2019 FINDINGS: The heart is borderline enlarged. There is no failure. There is no focal pulmonary consolid ation. There are no pleural effusions.[No pneumothorax is visualized. IMPRESSION: No active disease in the chest. ACT 112: Negative or not required by law. Electronically signed by: Naga Moreno M.D. 11/21/2019 1:48 PM
--- NOTE | 2019-11-21 13:49 | Hospitalist Consultation ---
Date of Consultation November 21, 2019 Assessment & Plan (1) Hypotensive episode: (2) Shortness of breath: This is a 64-year-old female with PMH of anxiety and arthritis who is POD#1 s/p right TKA by Dr. Alston with episode of dizziness and hypotension earlier today. -Episode of dizziness and inability to catch her breath today with associated hypotension of 85/54. Occurred when sitting eating lunch following morning PT and administration of 100mg Tramadol -Has tolerated smaller doses of Tramadol in the past -Symptoms subsided after 1 L NSS with improvement of BP to 108/75 -EKG reveals normal sinus rhythm without any acute ST or T wave changes. Portable chest x-ray revealed no active disease in chest. CT PE without evidence of pulmonary thromboembolic disease -Episode likely side effect of tramadol. Possible dehydration and vasovagal response also contributing -Continue gentle hydration and use of Tylenol and Toradol for pain. If narcotic therapy needed, recommend lower Tramadol dose (3) History of left knee replacement: POD #1 s/p R TKA by Dr. Alston. Per ortho for pain control, wound care, anticoagulation and activities (4) Anxiety: Continue home dose Effexor, Ativan PRN DVT Ppx: Receiving Aspirin 81mg BID PCP: Jose Dispo: Per orthopedic surgery Patient seen in collaboration with Dr. Desouza. Please see addendum. Supervising Physician Co-Signing Physician Notes History and physical exam performed by me. History significant for 64-year-old female with PMH of anxiety and arthritis who is POD#1 s/p right TKA by Dr. Alston, being consulted for hypotension and shortness of breath. Dizziness started shortly after getting tramadol and having lunch. Associated with shortness of breath and anxiety. Blood pressure recorded was noted to be 85/54. Patient was resuscitated with IV fluid bolus. Reported sister had PE At the time of evaluation, symptoms had resolved. Physical exam, General: Well nourished, no acute distress and not ill appearing Eyes: PERRL, conjunctivae normal, not pale, anicteric sclerae, EOM intact bilaterally ENMT: External ear and nose normal, dry oral mucosa Neck: Normal visual inspection, no tracheal deviation, no swelling noted Respiratory: Normal respiratory effort, no respiratory distress, lungs clear to auscultation, no crackles and no wheezes Cardiovascular: Pulse is RRR. S1-2, normal peripheral pulses Extremities: no pedal edema Chest (Breasts): Chest: normal inspection of chest Gastrointestinal (Abdomen): Abdomen is not distended, soft, non-tender to palpation, no guarding, no palpable hepatosplenomegaly, normal bowel sounds Musculoskeletal: No cyanosis or clubbing, all extremities motor strength 5/5 Genitourinary: No CVA tenderness Skin: No rash noted on gross inspection, No ulcers noted Neurologic: Alert and oriented x 3, No focal weakness, sensation grossly intact Psychiatric: Anxious affect EKG during episode did not show any ischemic changes Chest xray was unremarkable CT PE was negative for PE. Hypotension may be related to medication side effect vs dehydration Symptoms currently resolved Monitor BP Check orthostatic Will recommend avoiding opioids if possible and when necessary use lower dose of tramadol such as 25 or 50mg. Patient reported she had tolerated 50mg well in the past. She reported hallucinations with oxycodone. Will continue to monitor. Refer to Giuliana Alston PA-C's note for other details Thank you for your consult. Please feel free to contact the Hospitalist team with any questions. History of Present Illness Reason for Consultation: Postop day 1 shortness of breath and hypotension Attending Physician: Rohan Alston MD History of Present Illness This is a 64-year-old female with PMH of anxiety and arthritis who is POD#1 s/p right TKA by Dr. Alston. Patient woke up feeling well today and participated in physical therapy without issue and took a nap afterwards. Was sitting in bedside chair when knee pain worsened and patient was given tramadol 100 mg for pain. Was also eating lunch at this time. Began to experience some dizziness and felt like she could not catch her breath. BP was checked by RN and patient was hypotensive at 85/54. Was placed on 2L NC O2 for comfort although was never hypoxic. Our hospital service was consulted to evaluate this per Dr. Alston. Patient was given 1 L NSS bolus with improvement of BP to 108/75. Dizziness and shortness of breath have since resolved as well. EKG reveals normal sinus rhythm without any acute ST or T wave changes. Portable chest x-ray revealed no active disease in chest. Will obtain CT PE protocol to evaluate for blood clot. Patient denies any personal history of DVT/PE but sister with history of multiple PEs with unknown cause. Patient also endorses history of anxiety and wonders if event was due to panic, although denies history of panic attacks in the past. Is on Effexor for anxiety and takes Ativan as needed very rarely at home. Denies any fever, chills, lightheadedness, headache, chest pain, shortness of breath, nausea, vomiting, abdominal pain, dysuria, diarrhea or constipation. Allergies Allergy/AdvReac Type Severity Reaction Status Date / Time oxycodone AdvReac Mild Hallucinati Verified 11/20/19 07:11 ng Home Medications Home Medications Medication Instructions Recorded Confirmed Type venlafaxine 75 mg capsule,extended 75 mg PO HS 12/27/18 11/20/19 History release 24 hr Juice Plus 1 cap PO UD 05/01/19 11/20/19 History lorazepam 0.5 mg PO TID PRN 05/01/19 11/20/19 History amoxicillin 2,000 mg PO UD 10/29/19 10/29/19 History Multi Vitamin 1 tab PO DAILY 11/20/19 11/20/19 History Patient History Medical History (Updated 11/21/19 @ 14:39 by Giuliana Alston PA-C) Anxiety (Chronic) Right knee DJD Surgical History H/O breast biopsy H/O laparoscopy H/O shoulder surgery left (+hardware) H/O tooth extraction History of colonoscopy History of left knee replacement History of total knee replacement LEFT Family History Mother Myocardial infarction Father Myocardial infarction Hypertension Aunt Breast cancer Sister Stroke Son Multiple sclerosis Denies family history of Ovarian cancer Colorectal cancer Social History Preferred Language: Welsh Communication Ability: Effective Sales Solutions Representative Required: No Beliefs That Will Affect Care: None marital status: Current Living Situation: Spouse Feels Safe at Home: Yes Safety Concerns: Feels Safe At This Time Smoking Status: Never smoker Do You Dip or Chew Tobacco: No ; Second Hand Exposure: Yes ( A CHILD) ; Tobacco Cessation Education Requested by Patient: No Hx Alcohol Use: Yes Alcohol type: beer Hx Substance Use: No Review of Systems Review of Systems: At least ten systems reviewed and negative except as noted in the HPI. Physical Exam Physical Exam: Please see Dr. Desouza's addendum for physical exam details. Results & Data Results & Data ([facility]) Vital Signs (Past 12 Hours) Vital Signs Temp Pulse Pulse Pulse Resp BP BP 11/21/19 13:28 71 85/54 L 11/21/19 13:16 75 24 97/59 L 11/21/19 11:57 36.8 C 66 16 102/51 L 11/21/19 06:59 36.9 C 60 18 126/57 L 11/21/19 02:55 36.8 C 62 16 100/51 L Pulse Ox 11/21/19 13:28 99 11/21/19 13:16 11/21/19 11:57 95 11/21/19 06:59 92 11/21/19 02:55 94 Laboratory Results Short CBC 11/21/19 Range/Units 05:48 WBC 11.98 H (4.8-10.8) K/uL Hgb 12.0 (12.0-16.0) g/dL Hct 36.8 L (37-47) % Plt Count 214 (130-400) K/uL BMP 11/21/19 05:48 Sodium 140 Potassium 3.9 Chloride 107 Carbon Dioxide 27 BUN 15 Creatinine 0.73 Glucose 108 H Calcium 8.8 Diagnostic Findings CXR: IMPRESSION: No active disease in the chest. CTA chest: pending ECG Rhythm: normal sinus Change: no significant change
[2019-11-21] MEDS ORDERED: OPTIRAY 320 125ml IV PRN (14:20)
--- NOTE | 2019-11-21 14:42 | CT Scan Report ---
CT angio chest PE protocol CT DOSE: 752.72 mGy.cm HISTORY: 64 years-old Female with PE. Acute shortness of breath TECHNIQUE: Multiple CTA images of the chest were obtained after the intravenous administration of 120 ml Optiray 320. Coronal and sagittal MIPS were obtained from the axial data set and were submitted for review. All measurements were obtained according to NASCET criteria. A dose lowering technique w as utilized adhering to the principles of ALARA. COMPARISON: Chest radiograph of same day FINDINGS: CTA: Mild cardiomegaly. No pericardial effusion. No thoracic aortic aneurysm or dissection. Patency of the imaged great vessels. Pulmonary arterial tree is opacified to level of the proximal subsegmental bra nches and demonstrates no focal filling defects to suggest pulmonary thromboembolic disease. CT CHEST: Unremarkable thyroid. No adenopathy. No pneumothorax, pleural effusion or overt pulmonary edema. Mild bibasilar groundglass densities with right lung base linear consolidation suggestive of atelectasis. No lobar airspace consolidation typical for pneumonia. There are no suspicious pulmonary nodules or masses. Central airways appear patent. Tiny hiatal hernia. No acute process of the imaged upper abdomen. Soft tissues are unremarkable. Part ially imaged ORIF hardware of the left humeral head. IMPRESSION: 1. Mild cardiomegaly without evidence of pulmonary thromboembolic disease. 2. No adenopathy, pleural effusion or airspace consolidation typical for pneumonia. ACT 112: Negative or not required by law. The above report was generated using voice recognition software. It may contain grammatical, syntax o r spelling errors. Electronically signed by: Augustine Ivory M.D. 11/21/2019 2:41 PM
[2019-11-21] MEDS ORDERED: SODIUM CHLORIDE 0.9% 1000ML 1,000 ML IV SCH (15:15)
[2019-11-21] MEDS: KETOROLAC TROMETHAMINE 15 MG/ML VIAL IV PRN (20:37)
[2019-11-21] MEDS: SENNA 8.6 MG TAB PO SCH (20:37)
[2019-11-21] MEDS: VENLAFAXINE HCL XR 75 MG CAPXR PO SCH (20:37)
[2019-11-21] MEDS: TRAMADOL HCL 50 MG TABLET PO PRN (22:34)
--- NOTE | 2019-11-21 23:37 | Electrocardiogram Report ---
Test Reason : Blood Pressure : / mmHG Vent. Rate : 067 BPM Atrial Rate : 067 BPM P-R Int : 126 ms QRS Dur : 104 ms QT Int : 384 ms P-R-T Axes : 000 044 057 degrees QTc Int : 405 ms Normal sinus rhythm Cannot rule out Anterior infarct , age undetermined Abnormal ECG When compared with ECG of 01-FEB-2019 12:41, QT has shortened Confirmed by Ye Garcia ([id number]) on 11/21/2019 11:37:29 PM Referred By: Rohan Alston Confirmed By:Ye Garcia
[2019-11-22] MEDS: ACETAMINOPHEN 500 MG TAB PO SCH ×2 (05:08→13:54)
[2019-11-22] MEDS: TRAMADOL HCL 50 MG TABLET PO PRN ×2 (05:09→12:10)
[2019-11-22] MEDS: KETOROLAC TROMETHAMINE 15 MG/ML VIAL IV PRN (07:31)
[2019-11-22] MEDS: FERROUS GLUCONATE 324 MG TAB PO SCH (07:32)
[2019-11-22] MEDS: ASPIRIN 81 MG ECTAB PO SCH (07:32)
[2019-11-22] MEDS: MULTIVITAMIN TAB PO SCH (07:33)
[2019-11-22] MEDS: ASCORBIC ACID 500 MG TAB PO SCH (07:33)
[2019-11-22] MEDS: DOCUSATE SODIUM 100 MG CAP PO SCH (07:33)
[2019-11-22] MEDS: TAPENTADOL HCL ER 50 MG TABCR PO SCH (07:34)
--- NOTE | 2019-11-22 08:49 | Progress Notes ---
DATE: 11/22/2019 SUBJECTIVE: A 64-year-old white female postop day 2 from right knee replacement. She is doing much better this morning. Had a vasovagal episode yesterday. She had an extensive workup which was all negative. Denies any chest pain or shortness of breath. Not feeling dizzy or lightheaded. Pain is controlled. OBJECTIVE: VITAL SIGNS: Temperature 37.1. Vital signs stable. GENERAL: Shows a pleasant, middle-aged female. She is sitting up in her bedside chair, looks comfortable. EXTREMITIES: Examination of the right leg reveals the dressing to be clean, dry and intact. Calf is soft and supple. She is neurologically intact. LABORATORY WORKUP: Chest x-ray negative. EKG, no interval change. CT scan, no signs of pulmonary embolism. ASSESSMENT: A 64-year-old white female postop day 2 from right knee replacement, doing well. It sounds like she had a vasovagal episode yesterday. She had an extensive workup which was all negative. No signs of deep venous thrombosis or thrombosis. She appears at baseline. PLAN: 1. DVT prophylaxis including thigh-high TEDs, SCDs, and aspirin twice a day. 2. PT/OT. Weight bear as tolerated. Right total knee protocol. 3. Pain control, doing okay with current pain regimen. We are going to have to be careful not to give her too much pain medicines as a single dose as she has had problems with it in the past. 4. Disposition: Plan to discharge to home with home health later today.
--- NOTE | 2019-11-22 10:48 | Hospitalist Progress Note ---
Date of Service November 22, 2019 Assessment & Plan (1) Hypotensive episode: (2) Shortness of breath: This is a 64-year-old female with PMH of anxiety and arthritis who is POD#1 s/p right TKA by Dr. Alston with episode of dizziness and hypotension zeny ier today. -Episode of dizziness and inability to catch her breath today with associated hypotension of 85/54. Occurred when sitting eating lunch following morning PT and administration of 100mg Tramadol -Has tolerated smaller doses of Tramadol in the past -Symptoms subsided after 1 L NSS with improvement of BP to 108/75. EKG reveals normal sinus rhythm without any acute ST or T wave changes. Portable chest x- ray revealed no active disease in chest. CT PE without evidence of pulmonary thromboembolic disease -Episode likely side effect of tramadol. Possible dehydration and vasovagal response also contributing -was given IV hydration and no further events -11/22/2019: Patient seen awake and alert. no dizziness. no headache. no nausea. no vomiting. no shortness of breath. no acute events today she is awaiting hospital discharge as per orthopedics (3) History of left knee replacement: s/p R TKA by Dr. Alston (4) Anxiety: Continue home dose Effexor, Ativan PRN DVT Ppx: Receiving Aspirin 81mg BID PCP: [facility] Dispo: discharge as Per orthopedic surgery, hospitalist medicine service sign off Admission and Anticipated Discharge Date Admission Date: November 21, 2019 Subjective Patient seen awake and alert. no dizziness. no headache. no nausea. no vomiting. no shortness of breath. no acute events today she is awaiting hospital discharge as per orthopedics Review of Systems Review of Systems: All systems reviewed & are unremarkable except as noted in Subjective Physical Exam Constitutional: WD/WN, vitals as above Eyes: PERRL, conjunctivae normal, anicteric sclerae EOM intact bilaterally ENMT: external ear and nose normal, oropharynx normal Neck: trachea midline, no thyromegaly normal visual inspection Respiratory: normal respiratory effort, lungs clear to auscultation Cardiovascular: RRR, no murmur, no edema Gastrointestinal (Abdomen): normal bowel sounds, soft, nontender, no hepatosplenomegaly Musculoskeletal: Head/Neck/Chest: normocephalic and head atraumatic Neurologic: PERRL, EOMI, accommodation nl, no face palsy, no dysarthria Psychiatric: A+Ox3, euthymic affect Results & Data Results & Data ([facility]) Vital Signs (Past 12 Hours) Vital Signs Temp Pulse Pulse Pulse Resp BP BP 11/22/19 09:22 37.1 C 71 76 62 16 108/75 127/80 11/22/19 07:17 37.1 C 76 16 127/80 11/21/19 22:55 37.1 C 80 16 136/71 Pulse Ox 11/22/19 09:22 96 11/22/19 07:17 96 11/21/19 22:55 92
--- NOTE | 2019-11-25 16:10 | Discharge Summary ---
Date of Service November 25, 2019 Admission HPI Per Admitting Provider Documented in the H&P Admission Exam (Per Admitting) Constitutional Documented in the H&P Discharge Data Consultations 11/20/19 11:42 Consult Case Management - Discharge Planning Routine 11/21/19 13:27 Consult Hospitalist Routine Procedures Performed Operation Date: 11/20/19 08:30 Actual Procedures p Right Total Knee Arthroplasty(Right) - Rohan Alston MD Operation Date: 11/20/19 11:00 <No data on this case meets the specified criteria> Hospital Course (1) Status post total right knee replacement: 64-year-old female admitted on 11/20/2019 underwent total knee arthroplasty. She tolerated procedure well there were no complications. She was transferred to the PACU postoperatively and later to the orthopedic floor for further care. She was given Ancef for antibiotic prophylaxis. She was given BRANDY stockings, SCDs, and aspirin for DVT prophylaxis. Hemoglobin, hematocrit, and vital signs were monitored during her hospital stay remained stable. She did not require any blood transfusions. There were no complications. She did have some hypotension and dizziness postoperatively, from a vasovagal episode was seen by the hospitalist service and evaluated appropriately. By postoperative day 2 she was tolerating a regular diet, pain was controlled with oral pain medicine, and she is participating in physical therapy. On postop day 2 she was then discharged home set up with home health services. She is given printed discharge instructions as well as new prescriptions for extra strength Tylenol, aspirin, tramadol. Continue physical therapy. She is weightbearing as tolerated. Continue BRANDY stockings. Follow-up in approximately 2 weeks postoperatively or sooner if there are problems or concerns. Coding Level of Care Code None Diagnoses Status post total right knee replacement Z96.651
== END 2019-11-22 14:26 | disposition home health service (06) | DRG 470 ==
LOC: 3E 06:45 → ASU 06:45